=== PATIENT | male | born 1990 | race Caucasian/White ===

== ENCOUNTER 2018-12-31 13:16 | Emergency (ER) | payer SELFPAY ==
[~2018-12-31] VITALS: Ht 175.3 cm; Wt 86.6 kg
--- NOTE | 2018-12-31 13:29 | NUR ---
NO C-COLLAR IN TRIAGE PER SOUMYA ARMENTA
[2018-12-31] MEDS ORDERED: LIDOCAINE 2% VISCOUS 15 ML UDC MM ONE (14:00)
[2018-12-31] MEDS ORDERED: LIDOCAINE 2% VISCOUS 15 ML UDC ONE (14:51)
--- NOTE | 2018-12-31 14:56 | NUR ---
D/C INSTRUCTIONS, MEDS, & F/U APPT RV'WD WITH PT, HE VERBALIZES UNDERSTANDING. RX GIVEN X2. PT AMBULATED OUT OF ED WITH FAMILY WITHOUT DIFFICULTY.
[2018-12-31 14:58] VITALS: BP 149/102
== END 2018-12-31 14:59 | disposition home or self-care (01) ==
LOC: ED 14:55
DX: S01.512A Laceration without foreign body of oral cavity, initial encounter (principal); M25.531 Pain in right wrist; M79.641 Pain in right hand; V47.5XXA Car driver injured in collision with fixed or stationary object in traffic accident, initial encounter; Y93.89 Activity, other specified; Y92.89 Other specified places as the place of occurrence of the external cause; Y99.8 Other external cause status
CPT/HCPCS: 99283